=== PATIENT | male | born 1955 | race African-American/Black ===

== ENCOUNTER 2024-04-01 09:29 | Inpatient (IN) | payer MEDICARE, MEDICAID ==
[~2024-04-01] VITALS: Ht 175.3 cm; Wt 71.7 kg
[~2024-04-01 09:29] MED LIST: AMLO10TA80 PO; ASPI-1497 PO; HYDR-4001 PO; METO-385 PO
[2024-04-01 10:02] LABS: BASOPHILS % 0.4 % (0.0-2.0); DIFFERENTIAL COMMENT 0; EOSINOPHILS % 0.5 % (0.0-5.0); HEMOGLOBIN. 11.8 g/dL (14.0-18.0); LYMPHOCYTES % 7.7 % (20.0-50.0); MEAN CORPUSCULAR HEMOGLOBIN 26.6 pg (28.0-32.0); MEAN CORPUSCULAR HGB CONC 33.6 g/dL (31.0-37.0); MEAN CORPUSCULAR VOLUME 79.2 fL (80.0-94.0); MEAN PLATELET VOLUME 6.5 fl (7.4-10.4); MONOCYTES % 8.8 % (2.0-8.0); NEUTROPHILS % 82.6 % (40.0-76.0); PLATELET 514 x1000/uL (130-400); RED BLOOD CELL COUNT 4.42 mill/uL (4.7-6.1); RED CELL DISTRIBUTION WIDTH 15.5 % (11.6-14.6); WHITE BLOOD COUNT 13.6 x1000/uL (4.5-11.0)
[2024-04-01 10:09] LABS: CHLORIDE 91 mEq/L (98-107); POTASSIUM 4.2 mEq/L (3.5-5.1); SODIUM 124 mEq/L (136-145)
[2024-04-01 10:10] LABS: CALCIUM 9.1 mg/dL (8.7-10.4); CARBON DIOXIDE 26 mEq/L (21-32)
[2024-04-01 10:15] LABS: CREATININE 0.6 mg/dL (0.6-1.3); GLUCOSE 72 mg/dL (70-105); UREA NITROGEN BLOOD 11 mg/dL (9-23)
[2024-04-01] MEDS ORDERED: SODIUM CHLORIDE 0.45% 500 ML IV ONE (10:15)
[2024-04-01 10:51] LABS: PARTIAL THROMBOPLASTIN TIME 42.7 sec (23.4-31.0)
[2024-04-01] MEDS ORDERED: SODIUM CHLORIDE 0.9% 1,000 ML IV SCH (11:00)
[2024-04-01] MEDS ORDERED: BUPR1FIL3 SL (12:06)
[2024-04-01] MEDS ORDERED: DOCU-150 PO (12:06)
[2024-04-01] MEDS ORDERED: PROPOFOL 200MG/20ML VIAL IV ONE (12:42)
[2024-04-01] MEDS ORDERED: MIDAZOLAM HCL 2 MG/2 ML VIAL ONE (12:43)
[2024-04-01] MEDS ORDERED: FENTANYL CITRATE/PF 50MCG/ML 2ML VIAL ONE (12:43)
[2024-04-01] MEDS ORDERED: EPHEDRINE SULFATE 50MG/ML VIAL ONE (13:22)
[2024-04-01] MEDS ORDERED: METOPROLOL TARTRATE 5MG/5ML VIAL IV ONE (15:00)
[2024-04-01] MEDS ORDERED: DEXAMETHASONE 4MG/ML 1ML VIAL ONE (15:00)
[2024-04-01] MEDS ORDERED: PROTAMINE SULFATE 10MG/ML VIAL 5ML IV ONE (15:48)
[2024-04-01] MEDS ORDERED: MAGNESIUM/ALUMINUM HYDROXIDE/SIMETHICONE 30ML UDC PO PRN (17:00)
[2024-04-01] MEDS ORDERED: ONDANSETRON HCL 4MG/2ML INJ IV PRN ×2 (17:00→17:30)
[2024-04-01] MEDS ORDERED: CLONIDINE 0.1MG TABLET PO PRN (17:00)
[2024-04-01] MEDS ORDERED: GUAIFENESIN 200MG/10ML SUGAR FREE UDC PO PRN (17:00)
[2024-04-01] MEDS ORDERED: ACETAMINOPHEN 325MG TABLET PO PRN (17:00)
[2024-04-01] MEDS ORDERED: DOCUSATE SODIUM 100MG CAPSULE PO PRN (17:00)
[2024-04-01] MEDS ORDERED: FENTANYL CITRATE/PF 50MCG/ML 2ML VIAL IV PRN (17:30)
[2024-04-01] MEDS: HYDROMORPHONE HCL/PF 2MG/ML CPJ IV PRN (17:35)
[2024-04-01] MEDS: ASPIRIN 81MG TABLET PO SCH (18:00)
[2024-04-01 18:04] LABS: HEMATOCRIT 26.4 % (42.0-52.0); HEMOGLOBIN 8.6 g/dL (14.0-18.0); MEAN CORPUSCULAR HEMOGLOBIN 26.9 pg (28.0-32.0); MEAN CORPUSCULAR HGB CONC 32.8 g/dL (31.0-37.0); PLATELET 470 x1000/uL (130-400); RED BLOOD CELL COUNT 3.22 mill/uL (4.7-6.1); RED CELL DISTRIBUTION WIDTH 15.5 % (11.6-14.6); WHITE BLOOD COUNT 17.4 x1000/uL (4.5-11.0)
[2024-04-01 18:07] LABS: CHLORIDE 98 mEq/L (98-107); POTASSIUM 4.8 mEq/L (3.5-5.1); SODIUM 127 mEq/L (136-145)
[2024-04-01 18:08] LABS: CALCIUM 8.3 mg/dL (8.7-10.4); CARBON DIOXIDE 20 mEq/L (21-32)
[2024-04-01 18:13] LABS: CREATININE 1.1 mg/dL (0.6-1.3); GLUCOSE 111 mg/dL (70-105); PARTIAL THROMBOPLASTIN TIME 35.9 sec (23.4-31.0); PROTHROMBIN TIME 11.4 sec (9.6-11.0); UREA NITROGEN BLOOD 19 mg/dL (9-23)
[2024-04-01 18:30] VITALS: BP 117/65; PULSE 103; RESP 20; TEMP 97.8
[2024-04-01 19:00] VITALS: BP 156/67; PULSE 103; RESP 20
[2024-04-01 20:00] VITALS: BP 156/67; PULSE 104; RESP 18; TEMP 96.9
[2024-04-01] MEDS ORDERED: NALOXONE HCL 0.4MG/ML VIAL IV PRN (20:30)
[2024-04-01] MEDS: HYDROCODONE/ACETAMINOPHEN 5/325MG TABLET PO PRN (20:43)
[2024-04-01 21:47] VITALS: PULSE 102; RESP 21; O2SAT 99
[2024-04-01] MEDS: IPRATROPIUM/ALBUTEROL 0.5-3(2.5)MG/3ML NEB HHN NR (21:47)
[2024-04-02] VITALS (9 sets, daily range): BP systolic 110–158; BP diastolic 62–96; PULSE 89–118; RESP 16–25; TEMP 97–98.1
[2024-04-02] MEDS ORDERED: VANCOMYCIN 1000MG/250ML 250 ML IV SCH (01:00)
[2024-04-02] MEDS: VANCOMYCIN 1G PREMIX 200 ML IV SCH (01:31)
[2024-04-02] MEDS: AMLODIPINE 10MG TABLET PO SCH (08:13)
[2024-04-02] MEDS: METOPROLOL TARTRATE 50MG TABLET PO SCH (16:46)
[2024-04-02] MEDS: RIVAROXABAN 2.5 MG TABLET PO SCH (16:46)
[2024-04-02] MEDS: MORPHINE SULFATE 2 MG/ML CPJ (NOT FOR IM USE) IV NR (17:02)
[2024-04-02] MEDS: HYDROCODONE/ACETAMINOPHEN 10/325MG TABLET PO PRN (20:10)
[2024-04-02] MEDS: FAMOTIDINE 20MG TABLET PO SCH (20:11)
[2024-04-02] MEDS: ATORVASTATIN CALCIUM 10MG TABLET PO SCH (20:11)
[2024-04-03] VITALS: BP 106/47; PULSE 80; RESP 18; TEMP 97.7
[2024-04-03 04:00] VITALS: BP 121/67; PULSE 71; RESP 17; TEMP 98.6
[2024-04-03 08:00] VITALS: RESP 18; TEMP 98.1
[2024-04-03 12:00] VITALS: PULSE 93; RESP 18; TEMP 98.3
[2024-04-03] MEDS ORDERED: ATOR10TA PO (12:22)
[2024-04-03] MEDS ORDERED: RIVA2.5T PO (12:22)
[2024-04-03 13:19] VITALS: BP 121/67; PULSE 93; TEMP 98.3; O2SAT 92
[2024-04-03 16:00] VITALS: PULSE 92; RESP 18; TEMP 97.6
[2024-04-03] MEDS: ACETAMINOPHEN 325MG TABLET PO PRN (16:58)
== END 2024-04-03 18:52 | DRG 270 ==
LOC: CCL 09:29 → 3WST 20:20
PROVIDERS: ADMIT Internal Medicine; ATTEND Internal Medicine
PROC: 04CK3ZZ Extirpation of Matter from Right Femoral Artery, Percutaneous Approach (ICD-10-PCS; principal; 2024-04-01)
PROC: 04CH3ZZ Extirpation of Matter from Right External Iliac Artery, Percutaneous Approach (ICD-10-PCS; 2024-04-01)
PROC: 04CC3ZZ Extirpation of Matter from Right Common Iliac Artery, Percutaneous Approach (ICD-10-PCS; 2024-04-01)
PROC: 047C3DZ Dilation of Right Common Iliac Artery with Intraluminal Device, Percutaneous Approach (ICD-10-PCS; 2024-04-01)
PROC: 047H3DZ Dilation of Right External Iliac Artery with Intraluminal Device, Percutaneous Approach (ICD-10-PCS; 2024-04-01)
PROC: B41DYZZ Fluoroscopy of Aorta and Bilateral Lower Extremity Arteries using Other Contrast (ICD-10-PCS; 2024-04-01)
PROC: B44FZZ3 Ultrasonography of Right Lower Extremity Arteries, Intravascular (ICD-10-PCS; 2024-04-01)
DX: I70.261 Atherosclerosis of native arteries of extremities with gangrene, right leg (principal); L89.153 Pressure ulcer of sacral region, stage 3; E87.1 Hypo-osmolality and hyponatremia; M86.9 Osteomyelitis, unspecified; L03.116 Cellulitis of left lower limb; D64.9 Anemia, unspecified; D72.829 Elevated white blood cell count, unspecified; I10 Essential (primary) hypertension; M79.671 Pain in right foot; M19.90 Unspecified osteoarthritis, unspecified site; R26.9 Unspecified abnormalities of gait and mobility; D50.9 Iron deficiency anemia, unspecified; Z72.0 Tobacco use; Z79.82 Long term (current) use of aspirin; Z79.899 Other long term (current) drug therapy; Z91.199 Patient's noncompliance with other medical treatment and regimen due to unspecified reason
CPT/HCPCS: 36415; 37221; 37252; 75716; 80048; 85025; 85027; 86850; 86900; 88304; 88311; 93005; 94640; 97162; 97535; C1725; C1753; C1769; C1893; J1100; J1170; J2250; J2270; J2704; J2720; J3010; J3370; J3490; C1761

== ENCOUNTER 2024-06-09 14:30 | Emergency (ER) | payer MEDICARE, MEDICAID ==
[~2024-06-09] VITALS: Ht 180.3 cm; Wt 82.0 kg
[~2024-06-09 14:30] MED LIST changes: +ATOR10TA PO; +BUPR1FIL3 SL; +DOCU-150 PO; +RIVA2.5T PO
[2024-06-09 14:32] VITALS: BP 123/63; PULSE 69; RESP 20; TEMP 98.4; O2SAT 99
[2024-06-09] MEDS ORDERED: SODIUM CHLORIDE 0.9% 1000ML BAG (SEPSIS BOLUS) IV ONE (15:15)
[2024-06-09] MEDS ORDERED: PIPERACILLIN/TAZO 3.375G/50ML 50 ML IV ONE (15:15)
== END 2024-06-09 16:18 | disposition left against medical advice (07) ==
LOC: ER 14:30
DX: R79.9 Abnormal finding of blood chemistry, unspecified (principal); D64.9 Anemia, unspecified; I10 Essential (primary) hypertension; Z79.899 Other long term (current) drug therapy; E78.5 Hyperlipidemia, unspecified
CPT/HCPCS: 99281; J7030